=== PATIENT | male | born 1985 | race Caucasian/White ===

== ENCOUNTER 2016-05-03 14:01 | Emergency (ER) | payer SELFPAY ==
--- NOTE | 2016-05-03 15:00 | ER PHYSICIAN DOCUMENTATION ---
Physician Documentation [facility] Name:Tamir Horowitz Age:30 yrs Sex:Male :1985 Arrival Date:05/03/2016 Time:14:01 Bed1 Private MD: Ricardo Bhandari Disposition: 05/03 14:27 Critical Care: not applicable. or Disposition: 05/03/16 14:40 Discharged to Home/Self Care. Impression: Atypical Chest Pain, Chest Wall Pain. - Condition is Good. - Discharge Instructions: CHEST WALL PAIN, Costochondritis, CHEST PAIN Atypical - CHEST PAIN, Uncertain Cause. - Medical Reconciliation form form. - Follow up: Emergency Department; When: As needed; Reason: If symptoms return. - Problem is new. - Symptoms are resolved. HPI: 14:16 This 30 yrs old Male presents to ER via Private Vehicle with complaints of sc Anxiety. 14:16 The patient or guardian reports chest pain that is located primarily in the left or lateral anterior chest. The pain does not radiate. There has been no movement of pain. Associated signs and symptoms: Pertinent positives: lightheadedness, tingling of hands and feet and lips hiking [place] 9000 feet. The chest pain is described as sharp. Duration: The patient or guardian reports multiple episodes, that are intermittent, the episodes last approximately 2 second(s). Modifying factors: The symptoms are alleviated by remaining still, the symptoms are aggravated by deep breath, palpation of area. Severity of pain: At its worst the pain was mild in the emergency department the pain has resolved. This patient does not have any risk factors related to chest pain. Historical: - Allergies: No known drug Allergies; - Home Meds: 1. Melatonin Oral - PMHx: None; - PSHx: None; - Tetanus: < 10 years. - Ebola Screening: : Patient negative for fever greater than or equal to 101.5 degrees Fahrenheit, and additional compatible Ebola Virus Disease symptoms. Patient denies exposure to infectious person. Patient denies travel to an Ebola-affected area in the 21 days before illness onset. No symptoms or risks identified at this time. . - Immunization history: Flu Vaccine None. - Social history: Smoking status: Patient states former smoker of tobacco. ROS: 14:17 Constitutional: Negative for fever, chills, and weight loss. sc Eyes: Negative for injury, pain, redness, and discharge. ENT: Negative for injury, pain, and discharge. Neck: Negative for injury, pain, and swelling. Respiratory: Negative for shortness of breath, cough, wheezing, and pleuritic chest pain. Abdomen/GI: Negative for abdominal pain, nausea, vomiting, diarrhea, and constipation. Back: Negative for injury and pain. MS/Extremity: Negative for injury and deformity. Skin: Negative for injury, rash, and discoloration. 14:17 Neuro: Negative for headache, weakness, numbness, tingling, and seizure. sc 14:17 Cardiovascular: Positive for chest pain. Exam: Constitutional: This is a well developed, well nourished patient who is awake, alert, and in no acute distress. Head/Face: Normocephalic, atraumatic. Eyes: Pupils equal round and reactive to light, extra-ocular motions intact. Lids and lashes normal. Conjunctiva and sclera are non-icteric and not injected. Cornea within normal limits. Periorbital areas with no swelling, redness, or edema. ENT: Nares patent. No nasal discharge, no septal abnormalities noted. Tympanic membranes are normal and external auditory canals are clear. Oropharynx with no redness, swelling, or masses, exudates, or evidence of obstruction, uvula midline. Mucous membranes moist. Neck: Trachea midline, no thyromegaly or masses palpated, and no cervical lymphadenopathy. Supple, full range of motion without nuchal rigidity, or vertebral point tenderness. No meningismus. Chest/axilla: Normal chest wall appearance and motion. Nontender with no deformity. No lesions are appreciated. Cardiovascular: Regular rate and rhythm with a normal S1 and S2. No gallops, murmurs, or rubs. Normal PMI, no JVD. No pulse deficits. Respiratory: Lungs have equal breath sounds bilaterally, clear to auscultation and percussion. No rales, rhonchi or wheezes noted. No increased work of breathing, no retractions or nasal flaring. Abdomen/GI: Soft, non-tender, with normal bowel sounds. No distension or tympany. No guarding or rebound. No evidence of tenderness throughout. Back: No spinal tenderness. No costovertebral tenderness. Full range of motion. Skin: Warm, dry with normal turgor. Normal color with no rashes, no lesions, and no evidence of cellulitis. MS/ Extremity: Pulses equal, no cyanosis. Neurovascular intact. Full, normal range of motion, negative Homans's, calves equal bilaterally. 14:23 Neuro: Awake and alert, GCS 15, oriented to person, place, time, and situation. or Cranial nerves II-XII grossly intact. Motor strength 5/5 in all extremities. Sensory grossly intact. Cerebellar exam normal. Normal gait. 14:23 Chest/axilla: Palpation: tenderness, that totally reproduces the patient's complaints. 14:23 Cardiovascular: Rate: normal, Rhythm: regular, Pulses: Pulses are 2+ in right radial artery and left radial artery. Heart sounds: normal, Edema: is not appreciated. Vital Signs: 14:09 BP 134 / 93; Pulse 100; Resp 18; Pulse Ox 98% ; Weight 81.65 kg; Height 5 ft. 9 in. cb (175.26 cm); Pain 4/10; 14:09 Body Mass Index 26.58 (81.65 kg, 175.26 cm) MDM: 14:14 Patient medically screened. or 14:25 Differential diagnosis: acute myocardial infarction, anxiety, chest wall pain. Patient sc took aspirin in the Emergency Department. Patient did not receive fibrinolytic due to na. Data reviewed: vital signs, nurses notes, EKG, and as a result, I will continue to observe the patient. Data interpreted: bus monitor: rate is 90 beats/min, rhythm is normal sinus rhythm. Counseling: I had a detailed discussion with the patient and/or guardian regarding: the historical points, exam findings, and any diagnostic results supporting the discharge/admit diagnosis, the need for outpatient follow up, to return to the emergency department if symptoms worsen or persist or if there are any questions or concerns that arise at home. ECG:. 18:10 EKG attached 05/03 14:27 Order name: 12-lead EKG; Complete Time: 14:46 or EC:25 Rate is 90 beats/min. Rhythm is regular. QRS Midway is Normal. CA interval is normal. QRS sc interval is normal. QT interval is normal. No Q waves. T waves are Normal. No ST changes noted. Clinical impression: Normal ECG. Interpreted by me. Reviewed by me. Dispensed Medications: 14:55 Drug: Aspirin 325 mg; Route: PO; cb 15:27 Follow up: Response: Adverse reaction, Physician notified cb Signatures: Marlene Reese RN RN Ricardo Gonsales MD MD or
--- NOTE | 2016-05-03 15:00 | ER NURSING DOCUMENTATION ---
Nurse's Notes [facility] Name:Tamir Horowitz Age:30 yrs Sex:Male :1985 Arrival Date:05/03/2016 Time:14:01 Bed1 Private MD: Diagnosis:Atypical Chest Pain;Chest Wall Pain Presentation: 05/03 14:11 Presenting complaint: Patient states: chest tightness and numbness in hands. cb 14:11 Method Of Arrival: Private Vehicle cb 14:11 Acuity: VIKTOR 3 cb 14:13 Transition of care: Other RMNP. Notified ED Physician of patient's arrival and CC Dr. zachary Olmedo notified. Triage Assessment: 14:18 General: Appears in no apparent distress, well groomed, Behavior is cooperative. Pain: cb Complains of pain in left lateral anterior chest Pain currently is 4 out of 10 on a pain scale. Aggravated by palpation to area. EENT: No deficits noted. Neuro: Level of Consciousness is awake, alert, Oriented to person, place, time, event. Cardiovascular: Pulses are 2+ in right radial artery. Respiratory: Airway is patent Trachea midline Respiratory effort is even, unlabored, Respiratory pattern is regular, symmetrical. GI: Reports tolerance of fluids, tolerance of food. : No deficits noted. Derm: Denies open wounds or rashes. Musculoskeletal: Reports pain in left lateral anterior chest gets worse with arm movement. Historical: - Allergies: No known drug Allergies; - Home Meds: 1. Melatonin Oral - PMHx: None; - PSHx: None; - Tetanus: < 10 years. - Ebola Screening: : Patient negative for fever greater than or equal to 101.5 degrees Fahrenheit, and additional compatible Ebola Virus Disease symptoms. Patient denies exposure to infectious person. Patient denies travel to an Ebola-affected area in the 21 days before illness onset. No symptoms or risks identified at this time. . - Immunization history: Flu Vaccine None. - Social history: Smoking status: Patient states former smoker of tobacco. Screenin:21 Infectious Disease Risk None. Abuse screen: Denies threats or abuse. Denies injuries cb from another. Nutritional screening: No deficits noted. Suicide Risk Assessment: Suicidal Thinking Present - No ( 0 points), Past Attempts - No (0 points), Family History of Suicide - No (0 points), Credible Suicide Plan - No (0 points), Means to Kill Self Available - No (0 points), Has Serious Health Problem - No ( 0 points), Lives Alone - No (0 points), Will Contract for Safety -. Assessment: 14:17 Pain: Complains of pain in left breast Pain currently is 4 out of 10 on a pain scale. cb Vital Signs: 14:09 BP 134 / 93; Pulse 100; Resp 18; Pulse Ox 98% ; Weight 81.65 kg; Height 5 ft. 9 in. cb (175.26 cm); Pain 4/10; 14:09 Body Mass Index 26.58 (81.65 kg, 175.26 cm) cb ED Course: 14:03 Patient arrived in ED. ds 14:11 Marlene Reese, RN is Primary Nurse. cb 14:12 Triage completed. cb 14:14 Ricardo Olmedo MD is Attending Physician. sc 14:22 Valuables Remains with patient Patient has correct armband on for positive cb identification. Placed in gown. Bed in low position. Call light in reach. Pulse Ox - RN Monitoring Only NIBP On - RN Monitoring Only. 14:31 EKG done. (by ED staff). Reviewed by Ricardo Olmedo MD. cb 18:10 EKG attached cb Administered Medications: 14:55 Drug: Aspirin 325 mg; Route: PO; cb 15:27 Follow up: Response: Adverse reaction, Physician notified cb Outcome: 14:40 Discharge ordered by . sc 14:50 Discharged to home ambulatory. cb 14:50 Condition: good 14:50 Discharge Assessment: Patient awake, alert and oriented x 3. No cognitive and/or functional deficits noted. Patient verbalized understanding of disposition instructions. 14:50 Discharge instructions given to patient, Instructed on discharge instructions, follow up and referral plans. Demonstrated understanding of instructions. 14:59 Patient left the ED. cb 05/04 11:06 Discharge F/U Call: Unable to reach: no answer st Signatures: Marlene Reese, Estefani Naranjo RN, cb, RN RN st Srot, Kristin, Reg Reg ds Ricardo Olmedo MD MD nj
== END 2016-05-03 15:00 | disposition home or self-care (01) ==
LOC: ER 14:01
DX: R07.89 Other chest pain (principal); R07.81 Pleurodynia
CPT/HCPCS: 93005; 99283